=== PATIENT | female | born 1960 | race Caucasian/White ===

== ENCOUNTER 2024-09-10 08:05 | Emergency (ER) | payer BC ==
[~2024-09-10] VITALS: Ht 162.6 cm; Wt 87.8 kg
[~2024-09-10 08:05] MED LIST: CARVEDILOL12.5 MG PO; LEVOTHYROXINE100 MCG PO; LIOTHYRONINE SO5 MCG PO; NORVASC5 MG PO
[2024-09-10] MEDS ORDERED: LIDOCAINE/RACEPINEP/TETRACAINE 3 ML SYR TOP ONE (08:45)
[2024-09-10] MEDS ORDERED: DIPHTH,PERTUSS(ACELL),TET VAC 0.5 ML SYRINGE IM ONE (08:45)
[2024-09-10 10:40] VITALS: BP 119/67
== END 2024-09-10 10:40 | disposition home or self-care (01) ==
LOC: ED 08:05
DX: S01.111A Laceration without foreign body of right eyelid and periocular area, initial encounter (principal); S01.81XA Laceration without foreign body of other part of head, initial encounter; I10 Essential (primary) hypertension; Z23 Encounter for immunization; Z88.2 Allergy status to sulfonamides; Z79.899 Other long term (current) drug therapy; Z79.890 Hormone replacement therapy; W22.09XA Striking against other stationary object, initial encounter
CPT/HCPCS: 12002; 90471; 90715; 99282-25